=== PATIENT | female | born 1980 | race Two or more races ===

== ENCOUNTER 2017-07-22 20:30 | Emergency (ER) | payer OTHER ==
[2017-07-22 23:30] LABS: ADD MAN DIFF? NO
[2017-07-22 23:32] LABS: WHITE BLOOD COUNT 7.7 10^3/ul (4.8-10.8)
[2017-07-22 23:32] LABS: BASOPHILS % 0.5 % (0.0-2.0); EOSINOPHILS % 0.5 % (0.0-7.0); HEMOGLOBIN 13.1 g/dl (12.0-16.0); LYMPHOCYTES # 2.7 10^3/ul (0.8-2.9); LYMPHOCYTES % 34.7 % (15.0-51.0); MEAN CORPUSCULAR HEMOGLOBIN 32.1 pg (29.0-33.0); MEAN CORPUSCULAR HGB CONC 34.5 g/dl (32.0-37.0); MEAN CORPUSCULAR VOLUME 93.1 fl (82.0-101.0); MEAN PLATELET VOLUME 10.4 fl (7.4-10.4); MONOCYTE # 0.9 10^3/ul (0.3-0.9); MONOCYTES % 11.2 % (0.0-11.0); NEUTROPHIL # 4.1 10^3/ul (1.6-7.5); PLATELET COUNT 254 10^3/UL (140-415); RED BLOOD COUNT 4.08 10^6/ul (4.20-5.40)
[2017-07-23 00:01] LABS: ANION GAP 16 (8-16); BLOOD UREA NITROGEN 13 mg/dl (7-20); CALCIUM 10.1 mg/dl (8.4-10.2); CARBON DIOXIDE 25 mmol/L (21-31); CHLORIDE 105 mmol/L (97-110); GLUCOSE 87 mg/dl (70-220); POTASSIUM 3.9 mmol/L (3.5-5.1); SODIUM 142 mmol/L (135-144)
[2017-07-23 00:15] LABS: TROPONIN-I < 0.012 ng/ml (0.00-0.12)
[2017-07-23 00:43] LABS: D-DIMER 1341.32 ng/ml (<460)
[2017-07-23] MEDS: SOD CHLORIDE 0.9% 100 ML (01:39)
[2017-07-23] MEDS: IOHEXOL 100 ML (01:39)
[2017-07-23] MEDS ORDERED: KETOROLAC 30 MG INJ IV (03:14)
[2017-07-23 03:31] LABS: TROPONIN-I < 0.012 ng/ml (0.00-0.12)
== END 2017-07-23 04:14 | disposition home or self-care (01) ==
LOC: E/R 20:30
DX: R07.9 Chest pain, unspecified (principal); R40.2142 Coma scale, eyes open, spontaneous, at arrival to emergency department; R40.2252 Coma scale, best verbal response, oriented, at arrival to emergency department; R40.2362 Coma scale, best motor response, obeys commands, at arrival to emergency department
CPT/HCPCS: 36415; 71045; 71275; 80048; 84484; 85025; 85378; 93005; 99285-25